=== PATIENT | male | born 1935 | race Caucasian/White ===

== ENCOUNTER 2018-01-06 12:28 | Emergency (ER) | payer MEDICARE ==
[~2018-01-06 12:28] MED LIST: ASPI-555 PO; CALCIUM PO; LISI-613 PO; LISI1TAB11 PO; LUTE20CA PO; MULTIVITAMIN PO; SIMV20TA2 PO; VITAMIN B12 IJ
[2018-01-06] MEDS ORDERED: CEFAZOLIN SODIUM 1 GM VIAL ONE (13:06)
== END 2018-01-06 14:38 | disposition home or self-care (01) ==
LOC: EDH 12:28
DX: S90.31XA Contusion of right foot, initial encounter (principal); L03.115 Cellulitis of right lower limb; E78.5 Hyperlipidemia, unspecified; I10 Essential (primary) hypertension; Z98.890 Other specified postprocedural states; W20.8XXA Other cause of strike by thrown, projected or falling object, initial encounter; Y93.01 Activity, walking, marching and hiking; Y92.89 Other specified places as the place of occurrence of the external cause; Y99.8 Other external cause status
CPT/HCPCS: 73600; 73620; 96372; 99283; J0690

== ENCOUNTER → 2019-01-30 | Outpatient (CLI) | payer OTHER ==
[~2019-01-30] MED LIST changes: -LISI1TAB11 PO; +LISI1TAB28 PO
== END | disposition home or self-care (01) ==
LOC: RAH 10:41
PROVIDERS: ATTEND Family Medicine
DX: Z13.6 Encounter for screening for cardiovascular disorders (principal)
CPT/HCPCS: 75571

== ENCOUNTER → 2019-03-16 | Outpatient (CLI) | payer MEDICARE | END | disposition home or self-care (01) | LOC: SHCH 10:11 | PROVIDERS: ATTEND Internal Medicine Cardiovascular Disease | DX: I08.3 Combined rheumatic disorders of mitral, aortic and tricuspid valves (principal); R01.1 Cardiac murmur, unspecified | CPT/HCPCS: 93306; 93356 ==

== ENCOUNTER → 2019-03-20 | Outpatient (CLI) | payer MEDICARE ==
[~2019-03-20] VITALS: Ht 177.8 cm; Wt 78.0 kg
[~2019-03-20] MED LIST changes: +REGADENOSON 0.4 MG/5 ML PF SYG IVP SCH
== END | disposition home or self-care (01) ==
LOC: SHCH 08:24
PROVIDERS: ATTEND Internal Medicine Cardiovascular Disease
DX: I25.10 Atherosclerotic heart disease of native coronary artery without angina pectoris (principal)
CPT/HCPCS: 78452; 93017; 96374; A9500 ×2; J2785